=== PATIENT | female | born 1965 | race American Indian/Alaskan Native ===

== ENCOUNTER 2021-06-14 22:36 | Emergency (ER) | payer OTHER, MEDICARE ==
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
[2021-06-15] MEDS ORDERED: HYDROcodone/ACETAMINOPHEN 10-325MG TAB PO ONE (06:49)
[2021-06-15] MEDS ORDERED: KETOROLAC 10 MG TAB PO ONE (06:49)
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
[2021-06-15 09:03] VITALS: BP 168/94
== END 2021-06-15 09:04 | disposition home or self-care (01) ==
LOC: ED 22:36
DX: S16.1XXA Strain of muscle, fascia and tendon at neck level, initial encounter (principal); S39.012A Strain of muscle, fascia and tendon of lower back, initial encounter; V49.9XXA Car occupant (driver) (passenger) injured in unspecified traffic accident, initial encounter; Y93.89 Activity, other specified; Y92.89 Other specified places as the place of occurrence of the external cause; Y99.8 Other external cause status
CPT/HCPCS: 72125; 72131; 99284